=== PATIENT | male | born 1960 | race Caucasian/White ===

== ENCOUNTER 2019-10-10 07:11 | Emergency (ER) | payer SELFPAY ==
[~2019-10-10] VITALS: Ht 167.6 cm; Wt 94.8 kg
--- NOTE | 2019-10-10 07:54 | REPVR ---
PROCEDURE INFORMATION: Exam: CT Head Without Contrast Exam date and time: 10/10/2019 7:39 AM Age: 59 years old Clinical indication: Dizziness; Additional info: CVA - nursing interventions must not delay CT TECHNIQUE: Imaging protocol: Computed tomography of the head without contrast. Radiation optimization: All CT scans at this facility use at least one of these dose optimization techniques: automated exposure control; mA and/or kV adjustment per patient size (includes targeted exams where dose is matched to clinical indication); or iterative reconstruction. Other technique: STROKE PROTOCOL was implemented. COMPARISON: No relevant prior studies available. FINDINGS: Brain: Normal. No hemorrhage. No significant white matter disease. No edema. Cortical anthony-white matter differentiation is preserved. Ventricles: Normal. No ventriculomegaly. Bones/joints: Unremarkable. No acute fracture. Sinuses: Patchy ethmoid sinus disease. Mastoid air cells: Visualized mastoid air cells are well aerated. Soft tissues: Unremarkable. IMPRESSION: No cerebral changes of acute infarct on non-contrast CT at this time. ASSESSMENT: ASPECTS ([place] Stroke Program Early CT Score) is 10. Electronically signed by: Daya Menjivra On 10/10/2019 07:54:26 AM
--- NOTE | 2019-10-10 07:59 | REP ---
Portable chest, 07:48 a.m., single frontal view: There are no comparisons. The lung swanson are clear. The cardiac size is normal. The jacque, mediastinum, and skeletal structures are unremarkable. Impression: Negative portable chest. Electronically Signed by Go Allan MD 10/10/2019 07:50 A
[2019-10-10 08:22] LABS: BASO # 0.1 10^3/uL (0.0-0.2); BASO % 0.7 % (0.0-1.0); EOS # 0.2 10^3/uL (0.0-0.5); EOS % 1.8 % (0.0-3.0); LYMPH # 2.7 10^3/uL (1.5-5.0); LYMPH % 26.9 % (24.0-44.0); MEAN CORPUSCULAR HEMOGLOBIN 32.7 pg (27.0-33.0); MEAN CORPUSCULAR HGB CONC 34.6 g/dl (32.0-36.5); MEAN CORPUSCULAR VOLUME 94.3 fl (80.0-96.0); MONO # 0.5 10^3/uL (0.0-0.8); MONO % 4.5 % (0.0-5.0); NEUTROPHILS # 6.6 10^3/uL (1.5-8.5); NEUTROPHILS % 65.5 % (36.0-66.0); PLATELET COUNT, AUTOMATED 214 10^3/uL (150-450)
[2019-10-10 08:26] LABS: HEMATOCRIT 53.4 % (42.0-52.0); HEMOGLOBIN 18.5 g/dl (13.5-17.5); RED BLOOD COUNT 5.66 10^6/uL (4.30-6.10)
[2019-10-10 08:34] LABS: INR 0.97; PARTIAL THROMBOPLASTIN TIME 27.3 SECONDS (25.0-38.4); PROTHROMBIN TIME 12.6 SECONDS (11.8-14.0)
[2019-10-10 09:10] LABS: BLOOD UREA NITROGEN 14 MG/DL (7-18); CALCIUM LEVEL 8.7 MG/DL (8.8-10.2); CARBON DIOXIDE LEVEL 26 MEQ/L (21-32); CHLORIDE LEVEL 111 MEQ/L (98-107); CK-MB VALUE MASS < 1.0 NG/ML (<3.6); CPK CREATINE PHOSPHOKINASE 203 U/L (39-308); CREATININE FOR GFR 0.82 MG/DL (0.70-1.30); GLOMERULAR FILTRATION RATE > 60.0 (>49); GLUCOSE, FASTING 104 MG/DL (70-100); MB/CK RELATIVE INDEX 0.49 (< OR =4); SODIUM LEVEL 140 MEQ/L (136-145); TROPONIN I 0.02 NG/ML (< 0.10)
[2019-10-10 09:20] LABS: ETHYL ALCOHOL (ETHANOL) < 0.003 % (0.000-0.010); MAGNESIUM LEVEL 2.2 MG/DL (1.8-2.4)
[2019-10-10] MEDS ORDERED: ASPI325T55 PO (10:17)
[2019-10-10] MEDS ORDERED: CARD120C3 PO (10:17)
[2019-10-10] MEDS ORDERED: ASPIRIN 325 MG TAB PO ONE (10:30)
[2019-10-10 10:43] VITALS: BP 199/109
[2019-10-10 10:45] LABS: CHOLESTEROL LEVEL 230 MG/DL (<200); CHOLESTEROL RISK RATIO 3.432 (<5); HDL CHOLESTEROL 67 MG/DL (>40); LDL CHOLESTEROL 138 MG/DL (<100); NON-HDL-C 163 MG/DL; TRIGLYCERIDES LEVEL 125 MG/DL (<150)
--- NOTE | 2019-10-10 11:16 | ECGEPIP ---
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
== END 2019-10-10 10:53 | disposition left against medical advice (07) ==
LOC: M ED 07:11
DX: R20.2 Paresthesia of skin (principal); I10 Essential (primary) hypertension; I48.91 Unspecified atrial fibrillation; R94.31 Abnormal electrocardiogram [ECG] [EKG]; F17.200 Nicotine dependence, unspecified, uncomplicated
CPT/HCPCS: 70450; 71045; 80047; 80048; 80061; 82550; 82553; 83735; 84484; 85025; 85610; 85730; 93005; 93041; 94760; 99284; G0480